=== PATIENT | male | born 1950 | race Caucasian/White ===

== ENCOUNTER → 2018-08-27 | Outpatient (CLI) | payer MEDICARE, OTHER ==
[2018-08-27 16:37] LABS: BASO # 0.1 (0.02-0.10); EOS # 0.2 (0.04-0.40); EOS % 2.5 % (0.0-4.0); HEMATOCRIT 44.2 % (42.0-52.0); HEMOGLOBIN 14.5 g/dL (13.5-18.0); LYMPH# 2.5 (1.50-4.00); MEAN CELL VOLUME 94 fl (78-100); MEAN CORPUSCULAR HEMOGLOBIN 31 pg (27-31); MEAN CORPUSCULAR HGB CONC 33 g/dL (33-37); MEAN PLATELET VOLUME 11.1 fl (7.4-10.4); MONO # 1.1 (0.20-0.80); NEU # 5.6 (1.40-6.50); PLATELET COUNT 206 K/mm3 (130-400); RED BLOOD COUNT 4.72 M/mm3 (4.20-5.60); RED CELL DISTRIBUTION WIDTH 13.7 % (11.5-14.5); WHITE BLOOD COUNT 9.5 K/mm3 (4.8-10.8)
[2018-08-27 17:34] LABS: ALBUMIN 4.1 g/dL (3.4-4.8); CALCIUM 9.8 mg/dL (8.8-10.0); POTASSIUM 3.5 mmol/L (3.5-5.1); TOTAL BILIRUBIN 0.6 mg/dL (0.2-1.2); TOTAL PROTEIN 7.2 g/dL (6.2-8.1)
== END ==
LOC: LAB 16:23
PROVIDERS: Family Medicine
DX: Z00.00 Encounter for general adult medical examination without abnormal findings (principal); E66.3 Overweight

== ENCOUNTER → 2020-03-30 | Outpatient (CLI) | payer MEDICARE, OTHER ==
[2020-03-30 08:28] LABS: HEMATOCRIT 47.1 % (42.0-52.0); HEMOGLOBIN 15.4 g/dL (13.5-18.0); MEAN CELL VOLUME 94 fl (78-100); MEAN CORPUSCULAR HEMOGLOBIN 31 pg (27-31); MEAN CORPUSCULAR HGB CONC 33 g/dL (33-37); MEAN PLATELET VOLUME 10.9 fl (7.4-10.4); PLATELET COUNT 250 K/mm3 (130-400); RED BLOOD COUNT 5.02 M/mm3 (4.20-5.60); RED CELL DISTRIBUTION WIDTH 13.5 % (11.5-14.5); WHITE BLOOD COUNT 8.5 K/mm3 (4.8-10.8)
[2020-03-30 09:35] LABS: ALBUMIN 4.1 g/dL (3.4-4.8); POTASSIUM 3.9 mmol/L (3.5-5.1)
[2020-03-30 09:36] LABS: CALCIUM 9.2 mg/dL (8.3-10.5)
[2020-03-30 09:38] LABS: TOTAL PROTEIN 7.3 g/dL (6.2-8.1)
[2020-03-30 10:51] LABS: LYMPHOCYTE 25 % (20-51); MONOCYTE 12 % (3-10); NEUTROPHILS 60 % (42-75)
== END ==
LOC: LAB 07:44
PROVIDERS: Family Medicine
DX: Z00.00 Encounter for general adult medical examination without abnormal findings (principal); Z12.5 Encounter for screening for malignant neoplasm of prostate; E78.5 Hyperlipidemia, unspecified

== ENCOUNTER → 2020-05-02 | Outpatient (CLI) | payer MEDICARE, OTHER | LOC: LAB 08:22 | DX: U07.1 COVID-19 (principal) ==

== ENCOUNTER 2020-07-20 05:21 | Emergency (ER) | payer MEDICARE, OTHER ==
[2020-07-20] MEDS ORDERED: ATENOLOL/CHLORT1 TA1 PO (05:39)
[2020-07-20 06:01] LABS: HEMOGLOBIN 15.3 g/dL (13.5-18.0); MEAN CELL VOLUME 92 fl (78-100); MEAN CORPUSCULAR HEMOGLOBIN 31 pg (27-31); MEAN CORPUSCULAR HGB CONC 33 g/dL (33-37); MEAN PLATELET VOLUME 11.7 fl (7.4-10.4); PLATELET COUNT 182 K/mm3 (130-400); RED BLOOD COUNT 4.98 M/mm3 (4.20-5.60); RED CELL DISTRIBUTION WIDTH 14.1 % (11.5-14.5)
[2020-07-20 06:12] LABS: POTASSIUM 3.1 mmol/L (3.5-5.1)
[2020-07-20 06:14] LABS: CALCIUM 9.3 mg/dL (8.3-10.5)
[2020-07-20 06:15] LABS: TOTAL PROTEIN 7.1 g/dL (6.2-8.1)
[2020-07-20 06:17] LABS: TOTAL BILIRUBIN 0.8 mg/dL (0.2-1.2)
[2020-07-20 06:18] LABS: LYMPHOCYTE 42 % (20-51); MONOCYTE 16 % (3-10); NEUTROPHILS 40 % (42-75)
[2020-07-20 06:23] LABS: PROTHROMBIN TIME 9.9 SECONDS (9.0-12.0)
[2020-07-20 06:27] LABS: TROPONIN-I 0.47 ng/mL (<0.030)
[2020-07-20 07:19] LABS: MAGNESIUM 1.92 mg/dL (1.60-2.60)
[2020-07-20 07:30] VITALS: BP 101/81
== END 2020-07-20 07:30 | disposition short-term general hospital (02) ==
LOC: ED 05:21
PROVIDERS: Nurse Practitioner Family
DX: I21.3 ST elevation (STEMI) myocardial infarction of unspecified site (principal); I10 Essential (primary) hypertension; F17.200 Nicotine dependence, unspecified, uncomplicated; Z86.73 Personal history of transient ischemic attack (TIA), and cerebral infarction without residual deficits
CPT/HCPCS: J0171; J0282; J1644; J2250; J2405; J3010; J3101; J3480; J7030; J7060

== ENCOUNTER 2020-07-24 01:17 | Emergency (ER) | payer MEDICARE, OTHER ==
[~2020-07-24 01:17] MED LIST: ATENOLOL/CHLORT1 TA1 PO
[2020-07-24] MEDS ORDERED: CLOPIDOGREL75 M2 PO (01:50)
[2020-07-24] MEDS ORDERED: METOPROLOL SUCC25 M1 PO (01:50)
[2020-07-24] MEDS ORDERED: ATORVASTATIN CA80 MG PO (01:50)
[2020-07-24] MEDS ORDERED: NITROGLYCERIN0.4 M1 SL (01:50)
[2020-07-24] MEDS ORDERED: ASPIRIN 81M81 MG/TA2 PO (01:52)
[2020-07-24 02:03] LABS: HEMATOCRIT 38.9 % (42.0-52.0); HEMOGLOBIN 12.6 g/dL (13.5-18.0); MEAN CELL VOLUME 94 fl (78-100); MEAN CORPUSCULAR HEMOGLOBIN 31 pg (27-31); MEAN CORPUSCULAR HGB CONC 32 g/dL (33-37); PLATELET COUNT 154 K/mm3 (130-400); RED BLOOD COUNT 4.13 M/mm3 (4.20-5.60); RED CELL DISTRIBUTION WIDTH 13.8 % (11.5-14.5)
[2020-07-24 02:04] LABS: MEAN PLATELET VOLUME 12.3 fl (7.4-10.4)
[2020-07-24 02:09] LABS: BAND 3 % (0-10); LYMPHOCYTE 21 % (20-51); MONOCYTE 11 % (3-10); NEUTROPHILS 64 % (42-75)
[2020-07-24 02:13] LABS: ALBUMIN 3.6 g/dL (3.4-4.8); POTASSIUM 3.7 mmol/L (3.5-5.1)
[2020-07-24 02:14] LABS: CALCIUM 9.4 mg/dL (8.3-10.5)
[2020-07-24 02:16] LABS: TOTAL PROTEIN 6.9 g/dL (6.2-8.1)
[2020-07-24 02:17] LABS: TOTAL BILIRUBIN 1.9 mg/dL (0.2-1.2)
[2020-07-24 02:30] LABS: TROPONIN-I 7.04 ng/mL (<0.030)
[2020-07-24 06:33] VITALS: BP 125/73
== END 2020-07-24 06:33 | disposition home or self-care (01) ==
LOC: ED 01:17
PROVIDERS: Family Medicine
DX: I25.10 Atherosclerotic heart disease of native coronary artery without angina pectoris (principal); I25.2 Old myocardial infarction; D64.9 Anemia, unspecified; I10 Essential (primary) hypertension; E78.5 Hyperlipidemia, unspecified; Z86.79 Personal history of other diseases of the circulatory system; Z95.5 Presence of coronary angioplasty implant and graft; Z86.16 Personal history of COVID-19; Z82.49 Family history of ischemic heart disease and other diseases of the circulatory system; Z79.02 Long term (current) use of antithrombotics/antiplatelets; Z79.82 Long term (current) use of aspirin

== ENCOUNTER → 2020-08-01 | Outpatient (CLI) | payer MEDICARE, OTHER ==
[2020-07-24 06:33] VITALS: BP 125/73
[~2020-08-01] MED LIST changes: +ASPIRIN 81M81 MG/TA2 PO; +ATORVASTATIN CA80 MG PO; +CLOPIDOGREL75 M2 PO; +METOPROLOL SUCC25 M1 PO; +NITROGLYCERIN0.4 M1 SL
[2020-08-01 14:47] LABS: ALBUMIN 3.9 g/dL (3.4-4.8); POTASSIUM 4.1 mmol/L (3.5-5.1)
[2020-08-01 14:48] LABS: CALCIUM 9.2 mg/dL (8.3-10.5)
[2020-08-01 14:49] LABS: TOTAL PROTEIN 7.2 g/dL (6.2-8.1)
[2020-08-01 14:51] LABS: TOTAL BILIRUBIN 0.5 mg/dL (0.2-1.2)
[2020-08-01 14:55] LABS: MAGNESIUM 1.91 mg/dL (1.60-2.60)
== END ==
LOC: LAB 14:16
PROVIDERS: Family Medicine
DX: E87.6 Hypokalemia (principal); E83.42 Hypomagnesemia

== ENCOUNTER → 2020-08-02 | Outpatient (CLI) | payer MEDICARE, OTHER ==
[2020-07-24 06:33] VITALS: BP 125/73
== END ==
LOC: RAD 07:53
DX: R09.89 Other specified symptoms and signs involving the circulatory and respiratory systems (principal)

== ENCOUNTER 2020-08-09 16:00 | Outpatient (RCR) | payer MEDICARE, OTHER | END 2020-11-07 | LOC: CARDLAB | DX: I21.9 Acute myocardial infarction, unspecified (principal); Z98.61 Coronary angioplasty status ==

== ENCOUNTER → 2020-10-19 | Outpatient (CLI) | payer MEDICARE, OTHER ==
[2020-10-19 12:35] LABS: ALBUMIN 3.9 g/dL (3.4-4.8)
[2020-10-19 12:36] LABS: POTASSIUM 4.5 mmol/L (3.5-5.1)
[2020-10-19 12:37] LABS: CALCIUM 9.3 mg/dL (8.3-10.5)
[2020-10-19 12:38] LABS: TOTAL PROTEIN 6.9 g/dL (6.2-8.1)
[2020-10-19 12:40] LABS: TOTAL BILIRUBIN 0.9 mg/dL (0.2-1.2)
== END ==
LOC: LAB 11:51
PROVIDERS: Family Medicine
DX: R17 Unspecified jaundice (principal)

== ENCOUNTER → 2021-09-26 | Outpatient (CLI) | payer MEDICARE, OTHER ==
[2021-09-26 16:21] LABS: BASO # 0.05 K/mm3 (0.02-0.10); EOS # 0.22 K/mm3 (0.04-0.40); EOS % 2.4 % (0.0-4.0); HEMATOCRIT 43.8 % (42.0-52.0); HEMOGLOBIN 14.1 g/dL (13.5-18.0); LYMPH# 1.22 K/mm3 (1.50-4.00); MEAN CELL VOLUME 96 fl (78-100); MEAN CORPUSCULAR HEMOGLOBIN 31 pg (27-31); MEAN CORPUSCULAR HGB CONC 32 g/dL (33-37); MEAN PLATELET VOLUME 11.4 fl (7.4-10.4); MONO # 1.28 K/mm3 (0.20-0.80); NEU # 6.42 K/mm3 (1.40-6.50); PLATELET COUNT 186 K/mm3 (130-400); RED BLOOD COUNT 4.56 M/mm3 (4.20-5.60); RED CELL DISTRIBUTION WIDTH 13.3 % (11.5-14.5); WHITE BLOOD COUNT 9.3 K/mm3 (4.8-10.8)
[2021-09-26 16:35] LABS: ALBUMIN 4.1 g/dL (3.4-4.8); POTASSIUM 4.5 mmol/L (3.5-5.1)
[2021-09-26 16:36] LABS: CALCIUM 9.7 mg/dL (8.3-10.5)
[2021-09-26 16:38] LABS: TOTAL PROTEIN 7.2 g/dL (6.2-8.1)
[2021-09-26 16:39] LABS: TOTAL BILIRUBIN 0.6 mg/dL (0.2-1.2)
== END ==
LOC: LAB 16:10
PROVIDERS: Family Medicine
DX: Z00.00 Encounter for general adult medical examination without abnormal findings (principal); Z12.11 Encounter for screening for malignant neoplasm of colon; E78.5 Hyperlipidemia, unspecified; I10 Essential (primary) hypertension; I25.10 Atherosclerotic heart disease of native coronary artery without angina pectoris; M19.90 Unspecified osteoarthritis, unspecified site

== ENCOUNTER → 2023-04-17 | Outpatient (CLI) | payer MEDICARE, OTHER | LOC: LAB 16:07 | DX: K14.8 Other diseases of tongue (principal) ==

== ENCOUNTER → 2023-10-04 | Outpatient (CLI) | payer MEDICARE, OTHER | LOC: LAB 15:42 | DX: C02.9 Malignant neoplasm of tongue, unspecified (principal) ==

== ENCOUNTER → 2024-03-31 | Outpatient (CLI) | payer MEDICARE, OTHER ==
[2024-03-31 16:48] LABS: BASO # 0.04 K/mm3 (0.02-0.10); EOS # 0.14 K/mm3 (0.04-0.40); EOS % 1.6 % (0.0-4.0); HEMATOCRIT 41.6 % (42.0-52.0); HEMOGLOBIN 13.3 g/dL (13.5-18.0); LYMPH# 0.68 K/mm3 (1.50-4.00); MEAN CELL VOLUME 95 fl (78-100); MEAN CORPUSCULAR HEMOGLOBIN 31 pg (27-31); MEAN CORPUSCULAR HGB CONC 32 g/dL (33-37); MEAN PLATELET VOLUME 11.7 fl (7.4-10.4); MONO # 0.77 K/mm3 (0.20-0.80); NEU # 6.86 K/mm3 (1.40-6.50); PLATELET COUNT 154 K/mm3 (130-400); RED BLOOD COUNT 4.36 M/mm3 (4.20-5.60); RED CELL DISTRIBUTION WIDTH 13.2 % (11.5-14.5); WHITE BLOOD COUNT 8.5 K/mm3 (4.8-10.8)
[2024-03-31 16:57] LABS: CALCIUM 10.3 mg/dL (8.3-10.5)
[2024-03-31 16:59] LABS: TOTAL PROTEIN 6.8 g/dL (6.2-8.1)
[2024-03-31 17:00] LABS: TOTAL BILIRUBIN 0.5 mg/dL (0.2-1.2)
== END ==
LOC: LAB 16:25
PROVIDERS: Family Medicine
DX: Z12.5 Encounter for screening for malignant neoplasm of prostate (principal); D64.9 Anemia, unspecified; I10 Essential (primary) hypertension; E53.9 Vitamin B deficiency, unspecified; E03.9 Hypothyroidism, unspecified; E78.5 Hyperlipidemia, unspecified